=== PATIENT | female | born 2000 | race Caucasian/White ===

== ENCOUNTER 2023-05-20 11:55 | Emergency (ER) | payer OTHER, SELFPAY ==
[2023-05-20 12:07] VITALS: BP 120/73; PULSE 87; RESP 18; TEMP 36.7; O2SAT 98
--- NOTE | 2023-05-20 12:27 | ED.UPPEXIN ---
HPI - Extremity Injury (Upper) General Chief Complaint: Extremity Injury, Upper Stated Complaint: Right Hand/Wrist Injury Time Seen by Provider: 05/20/23 12:27 Source: patient Mode of arrival: ambulatory Limitations: no limitations History of Present Illness HPI narrative: 23-year-old female presents with complaint of pain and swelling to right thumb. Patient reports last night when she picked up her 22 lb Is[place] she felt pain to right thumb. Woke up this morning and pain worse with swelling and tight feeling. Pain worse with movement. Took ibuprofen prior to arrival. Patient does not feel that she can go to work today. All systems reviewed and negative except as noted above. Related Data Home Medications Medication Instructions Recorded Confirmed buspirone 10 mg tablet 10 mg PO DAILY 05/20/23 05/20/23 hydroxyzine HCl 25 mg tablet 25 mg PO DAILY 05/20/23 05/20/23 norethindrone (contraceptive) 0.35 See Rx Instructions .Route .COMPLEX 05/20/23 05/20/23 mg tablet trazodone 50 mg tablet 50 mg PO TID 05/20/23 05/20/23 Allergies Allergy/AdvReac Type Severity Reaction Status Date / Time hydrocodone Allergy Swelling Verified 05/20/23 12:33 piperacillin Allergy Rash Verified 05/20/23 12:32 Review of Systems Review of Systems: CONSTITUTIONAL: Denies fever, chills, or sweats. EYES: Denies visual changes, redness, or discharge. ENT: Denies rhinorrhea, congestion, sore throat, or otalgia. CARDIOVASCULAR: Denies chest pain, palpitations, or edema. RESPIRATORY: Denies cough or dyspnea. GASTROINTESTINAL: Denies abdominal pain, nausea, vomiting, or diarrhea. GENITOURINARY: Denies dysuria or hematuria. SKIN: Denies rash or itching. MUSCULOSKELETAL: Denies back pain, joint pain, or myalgia. Reports pain and swelling to right thumb. NEUROLOGIC: Denies headache, numbness, or weakness. PSYCHIATRIC: Denies anxiety or depression. All other systems reviewed are negative, except as documented in HPI. PMFSH Comments At time of signature, agree with nursing past medical, surgical, social and family history. There is no relevant family history pertinent to the presenting complaint. Exam Narrative: GENERAL: This is a well-nourished, well-developed patient, in no apparent distress. HEAD: normocephalic, atraumatic. EYES: PERRL. Sclera clear/white. Vision is grossly intact. EARS: External ears normal NOSE: External nose normal NECK: Neck supple, non-tender without lymphadenopathy, masses or thyromegaly. CARDIOVASCULAR: Regular rate and rhythm without murmurs, gallops, or rubs. RESPIRATORY: Clear to auscultation. Breath sounds equal bilaterally. No wheezes, rales, or rhonchi. SKIN: warm, Dry, intact with no suspicious lesions or rash, good texture and turgor. NEURO: awake, alert, and oriented to person, place and time. There were no obvious focal neurologic abnormalities. EXTREMITIES: pain and swelling to first metacarpal aspect with tenderness. ROM and distal NV intact. Course Course Level of Care: Express Care Visit Vital Signs Vital signs: Vital Signs Temperature 36.7 C 05/20/23 12:07 Pulse Rate 87 05/20/23 12:07 Respiratory Rate 18 05/20/23 12:07 Blood Pressure 120/73 05/20/23 12:07 Pulse Oximetry 98 05/20/23 12:07 Oxygen Delivery Room Air 05/20/23 12:07 Temperature 36.7 C 05/20/23 12:07 Pulse Rate 87 05/20/23 12:07 Respiratory Rate 18 05/20/23 12:07 Blood Pressure 120/73 05/20/23 12:07 Pulse Oximetry 98 05/20/23 12:07 Oxygen Delivery Room Air 05/20/23 12:07 Reviewed MDM - Extremity Injury (Upper) MDM Narrative Medical decision making narrative: Patient is aware of diagnosis, understands and agrees to treatment plan. Anticipatory guidance given. Patient agrees to follow-up as directed and is aware of reasons to seek care at the emergency department. Portions of this record may have been created with voice recognition software Patient offered x-ray of right th
== END 2023-05-20 12:40 | disposition home or self-care (01) ==
PROVIDERS: Emergency Provider Nurse Practitioner Family
DX: S69.81XA Other specified injuries of right wrist, hand and finger(s), initial encounter (principal); X58.XXXA Exposure to other specified factors, initial encounter; F41.9 Anxiety disorder, unspecified; F32.A Depression, unspecified
CPT/HCPCS: 99212; G0463